=== PATIENT | male | born 1995 ===

== ENCOUNTER 2022-03-13 11:58 | Emergency (ER) | payer SELFPAY ==
[2022-03-13] MEDS ORDERED: levETIRAcetam 1000 MG/NS 0.75% 1,000 MG/100 ML BAG IV ONE (13:52)
[2022-03-13] MEDS ORDERED: SODIUM CHLORIDE 0.9% 1000 ML 1,000 ML IV ONE (13:52)
--- NOTE | 2022-03-13 13:52 | Emergency Department Report ---
ED Seizure HPI - General Chief Complaint: Seizure Stated Complaint: SEIZURE Time Seen by Provider: 03/13/22 12:19 Source: EMS Mode of arrival: Stretcher Limitations: No Limitations - History of Present Illness Initial Comments: 26-year-old male with a history of seizure present with an episode of seizure that occurred this morning. Patient reported drinking alcohol this morning. Patient denies any suicidal or homicidal ideation. No chest pain shortness of breath or palpitation reported. Patient reports generalized body weakness. Patient described as seizure episode as groundma seizure. No other modifying or positive factors reported. - Related Data Allergies Allergy/AdvReac Type Severity Reaction Status Date / Time No Known Allergies Allergy Verified 03/13/22 12:03 ED Review of Systems ROS: Stated complaint: SEIZURE Other details as noted in HPI Comment: All other systems reviewed and negative Neurological: weakness, other (Seizure) ED Past Medical Hx - Past Medical History Hx Seizures: Yes ED Physical Exam - General Limitations: No Limitations General appearance: alert, in no apparent distress - Head Head exam: Present: normal inspection - Eye Eye exam: Present: normal appearance - ENT ENT exam: Present: normal exam, normal orophraynx, mucous membranes moist - Neck Neck exam: Present: normal inspection, full ROM. Absent: tenderness - Respiratory Respiratory exam: Present: normal lung sounds bilaterally. Absent: respiratory distress, accessory muscle use - Cardiovascular Cardiovascular Exam: Present: regular rate, normal rhythm, normal heart sounds - GI/Abdominal GI/Abdominal exam: Present: soft, normal bowel sounds. Absent: distended, tenderness - Extremities Exam Extremities exam: Present: normal inspection, normal capillary refill. Absent: full ROM, tenderness - Back Exam Back exam: Absent: tenderness - Neurological Exam Neurological exam: Present: alert, oriented X3 - Psychiatric Psychiatric exam: Present: normal affect, normal mood. Absent: anxious - Skin Skin exam: Present: warm, normal color ED Course Vital Signs 03/13/22 03/13/22 03/13/22 12:01 12:15 12:30 Temperature 98 F Pulse Rate 97 H 87 85 Respiratory 10 L 19 Rate Blood Pressure 109/62 Blood Pressure 104/66 [Left] O2 Sat by Pulse 98 99 99 Oximetry 03/13/22 03/13/22 03/13/22 12:46 13:00 13:16 Temperature Pulse Rate 81 85 80 Respiratory 14 13 15 Rate Blood Pressure 109/62 104/59 104/59 Blood Pressure [Left] O2 Sat by Pulse 99 100 100 Oximetry 03/13/22 03/13/22 03/13/22 13:30 13:46 14:00 Temperature Pulse Rate 88 79 81 Respiratory 11 L 15 14 Rate Blood Pressure 107/62 107/62 103/59 Blood Pressure [Left] O2 Sat by Pulse 99 100 100 Oximetry 03/13/22 03/13/22 03/13/22 14:16 14:30 14:46 Temperature Pulse Rate 84 86 78 Respiratory 14 17 16 Rate Blood Pressure 103/59 110/60 110/60 Blood Pressure [Left] O2 Sat by Pulse 100 100 100 Oximetry 03/13/22 03/13/22 03/13/22 15:00 15:16 15:30 Temperature Pulse Rate 84 75 72 Respiratory 17 14 13 Rate Blood Pressure 108/60 108/60 108/60 Blood Pressure [Left] O2 Sat by Pulse 100 99 98 Oximetry 03/13/22 03/13/22 03/13/22 15:46 16:00 16:16 Temperature Pulse Rate 81 73 75 Respiratory 11 L 12 12 Rate Blood Pressure 108/60 108/60 108/60 Blood Pressure [Left] O2 Sat by Pulse 100 99 99 Oximetry 03/13/22 03/13/22 03/13/22 16:30 16:46 17:00 Temperature Pulse Rate 83 77 77 Respiratory 13 12 14 Rate Blood Pressure Blood Pressure [Left] O2 Sat by Pulse 98 98 100 Oximetry 03/13/22 03/13/22 03/13/22 17:16 17:30 17:46 Temperature Pulse Rate 67 97 H 79 Respiratory 12 11 L 11 L Rate Blood Pressure 115/55 115/55 Blood Pressure [Left] O2 Sat by Pulse 100 100 100 Oximetry 03/13/22 18:00 Temperature Pulse Rate 71 Respiratory 11 L Rate Blood Pressure 110/64 Blood Pressure [Left] O2 Sat by Pulse 100 Oximetry - Reevaluation(s) Reevaluation #1: 03/13/22 13:51 Here with seizure with history of seizure--we will go ahead and order routine labs including CBC, CMP, UA, UDS, and thyroid profile to rule out any infectious or correctable cause. In the meantime we will give IV fluid for hydration. Reevaluation #2: 03/13/22 13:51 Patient asked for food and nutrition was ordered for this patient. Reevaluation #3: 03/13/22 15:13 Patient signed out to Dr. Jack who will continue this patient care ED Medical Decision Making - Lab Data Result diagrams: 03/13/22 14:02 03/13/22 14:02 Critical care attestation.: If time is entered above; I have spent that time in minutes in the direct care of this critically ill patient, excluding procedure time. ED Disposition Clinical Impression: Seizure Disposition: 01 HOME / SELF CARE / HOMELESS Is pt being admited?: No Does the pt Need Aspirin: No Condition: Stable Instructions: Seizure, Adult, [id number] Referrals: PRIMARY CARE, [Primary Care Provider] - 3-5 Days
[2022-03-13 14:12] LABS: Basophils % (Auto) 0.6 % (0.0-1.8); Eosinophils # (Auto) 0.1 K/mm3 (0.0-0.4); Eosinophils % (Auto) 1.1 % (0.0-4.3); Hematocrit 40.5 % (35.5-45.6); Hemoglobin 12.8 gm/dl (11.8-15.2); Lymphocytes # (Auto) 1.9 K/mm3 (1.2-5.4); Lymphocytes % (Auto) 30.4 % (13.4-35.0); Mean Corpuscular HGB Conc 32 % (32-34); Monocytes # (Auto) 0.3 K/mm3 (0.0-0.8); Monocytes % (Auto) 5.5 % (0.0-7.3); Platelet Count 181 K/mm3 (140-440); Red Blood Count 6.35 M/mm3 (3.65-5.03); Red Cell Distribution Width 16.8 % (13.2-15.2)
[2022-03-13 14:14] LABS: Mean Corpuscular Volume 64 fl (84-94)
[2022-03-13 14:22] LABS: INR 0.92 (0.87-1.13); Partial Thromboplastin Time 27.1 Sec. (24.2-36.6)
[2022-03-13 14:47] LABS: Alanine Aminotransferase 9 units/L (7-56); Albumin 4.3 g/dL (3.9-5); BUN/Creatinine Ratio 6; Blood Urea Nitrogen 7 mg/dL (9-20); Calcium 9.1 mg/dL (8.4-10.2); Hemolysis Index 3
[2022-03-13 15:16] LABS: Bilirubin,Urine NEG (Negative); Blood,Urine NEG (Negative); Color,Urine Yellow (Yellow); Hyaline Casts,Urine 3 /LPF; Mucus,Urine FEW /HPF; Protein,Urine <15 mg/dL mg/dL (Negative); RBC,Urine < 1.0 /HPF (0.0-6.0)
[2022-03-13 15:20] LABS: Amphetamine Screen,Urine PRESUMPTIVE NEGATIVE; Benzodiazepines Screen,Urine PRESUMPTIVE NEGATIVE; Cannabinoid Screen,Urine PRESUMPTIVE NEGATIVE; Cocaine Screen,Urine PRESUMPTIVE NEGATIVE; Methadone Screen,Urine PRESUMPTIVE NEGATIVE; Opiate Screen,Urine PRESUMPTIVE NEGATIVE
[2022-03-13 18:17] VITALS: BP 110/64
--- NOTE | 2022-03-15 09:34 | Electrocardiograph Report ---
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
== END 2022-03-13 18:54 | disposition still patient (30) ==
LOC: ED 11:58
DX: G40.909 Epilepsy, unspecified, not intractable, without status epilepticus (principal)
CPT/HCPCS: 36415; 80053; 80307; 81001; 84443; 84484; 85025; 85610; 85730; 93005; 96374; 99284; J1953; J7030; 80320; G0480